=== PATIENT | female | born 1990 | race Hispanic/Latino ===

== ENCOUNTER 2017-06-14 08:16 | Outpatient (CLI) | payer OTHER ==
[2017-06-14 08:27] VITALS: BP 121/87
== END 2017-06-14 10:30 | disposition home or self-care (01) ==
LOC: TRG 08:16
PROVIDERS: ATTEND Obstetrics & Gynecology
DX: O47.1 False labor at or after 37 completed weeks of gestation (principal); Z3A.38 38 weeks gestation of pregnancy
CPT/HCPCS: 59025

== ENCOUNTER 2017-06-21 09:47 | Inpatient (IN) | payer OTHER ==
[2017-06-21] MEDS ORDERED: BRETHINE IVP PRN (11:19)
[2017-06-21] MEDS ORDERED: SUBLIMAZE IV PRN ×2 (11:19→11:28)
[2017-06-21] MEDS ORDERED: ePHEDrine SULFATE IV PRN (11:19)
[2017-06-21] MEDS ORDERED: MINERAL OIL PO PRN (11:19)
[2017-06-21] MEDS ORDERED: BRETHINE SUB-Q PRN (11:19)
[2017-06-21] MEDS ORDERED: XYLOCAINE 2% INFILTRATI ONE (11:19)
[2017-06-21] MEDS ORDERED: NARCAN 0.4 MG/1 ML IV PRN (11:19)
--- NOTE | 2017-06-21 11:30 | History and Physical Report ---
History of Present Illness Date of examination: 06/21/17 Date of admission: 06/21/17 09:48 Chief complaint: irregular contractions with blood in mucus History of present illness: 27 yo Fe, EDC 06/26/2017 (LMP), 39 weeks 2 days presents with irregular contractions and "bloody mucus." Pt initiated early care at 14 weeks. Hx GDM with previous ( 1hr GTT 166, 3hr WNL). Vitamin D deficiency (Vitamin D3 supplementation). course has been uneventful. O positive, Rubella Immune, GBS Neg. 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 denies: smoking, alcohol abuse, prescription drug abuse, IV drug use - Obstetrical History Expected Date of Delivery: 06/26/17 Actual Gestation: 39 Week(s) 2 Day(s) : 2 Para: 1 Hx # Term Pregnancies: 1 Number of Pregnancies: 0 Spontaneous Abortions: 0 Induced : 0 Number of Living Children: 1 Medications and Allergies Allergies Allergy/AdvReac Type Severity Reaction Status Date / Time No Known Allergies Allergy Unverified 06/14/17 08:19 Review of Systems All systems: negative Genitourinary: vaginal bleeding, vaginal discharge, contractions (Irergular), no leakage of fluid, no genital sores Neurological: headaches (mild) - Vital Signs Vital signs: Vital Signs Pulse Pulse Ox 87 0 L 06/21/17 10:02 06/21/17 10:02 Temp Pulse Resp BP Pulse Ox 97.9 F 85 15 141/87 96 06/21/17 10:10 06/21/17 11:24 06/21/17 10:10 06/21/17 11:24 06/21/17 10:37 - Physical Exam Breasts: Positive: normal Cardiovascular: Regular rate, Normal S1, Normal S2, No murmurs Lungs: Positive: Clear to auscultation, Normal air movement Abdomen: Positive: normal appearance (Gravid), normal bowel sounds Genitourinary (Female): Positive: normal external genitalia, normal perenium Vulva: both: normal Vagina: Positive: discharge (mucus with normal bloody show) Uterus: Positive: enlarged (Size=Dates) Anus/Rectum: Positive: normal perianal skin. Negative: hemorrhoids Extremities: Positive: normal Deep Tendon Reflex Grade: Normal +2 - Obstetrical FHR: category 1 FHR comments: Reassuring Uterine Contraction Monitor Mode: External Cervical Dilatation: 5 Cervical Effacement Percentage: 75 station: -2 Uterine Contraction Frequency (min): 10min Uterine Contraction Pattern: Irregular Uterine Tone Measurement Phase: Resting Uterine Contraction Intensity: Moderate Results Result Diagrams: 06/21/17 11:40 All other labs normal. Assessment and Plan A: Term IUP at 39w2d GBS Negative Advanced dilitation 5/75/-2 Bloody show Category 1 tracing P: Admit to L&D Anticipate Pitocin Augmentation
[2017-06-21] MEDS ORDERED: PITOCin/NS 20 UNIT/1000ML DRIP 20 UNITS/1,000 ML BAG IV SCH (12:00)
[2017-06-21] MEDS ORDERED: PITOCin/NS 30 UNIT/500ML 30 UNITS/500 ML BAG IV SCH (12:00)
[2017-06-21] MEDS ORDERED: LACTATED RINGERS 1,000 ML IV SCH (12:00)
[2017-06-21 12:33] LABS: Hematocrit 33.8 % (30.3-42.9); Hemoglobin 11.2 gm/dl (10.1-14.3); Mean Corpuscular HGB Conc 33 % (30-34); Mean Corpuscular Hemoglobin 28 pg (28-32); Mean Corpuscular Volume 84 fl (79-97); Platelet Count 202 K/mm3 (140-440); Red Blood Count 4.04 M/mm3 (3.65-5.03); Red Cell Distribution Width 15.4 % (13.2-15.2)
--- NOTE | 2017-06-21 13:44 | Anesthesia Consultation ---
Anesthesia Consult and Med Hx Date of service: 06/21/17 - Airway Anesthetic Teeth Evaluation: Good ROM Head & Neck: Adequate Mental/Hyoid Distance: Adequate Intubation Access Assessment: Probably Good - Pre-Operative Health Status ASA Pre-Surgery Classification: ASA2, Emergency Proposed Anesthetic Plan: Epidural, Spinal - Pulmonary Hx Asthma: No COPD: No Hx Pneumonia: No - Cardiovascular System Hx Hypertension: No - Central Nervous System Hx Seizures: No Hx Psychiatric Problems: No - Endocrine Hx Renal Disease: No Hx End Stage Renal Disease: No Hx Hypothyroidism: No Hx Hyperthyroidism: No - Hematic Hx Anemia: No Hx Sickle Cell Disease: No - Other Systems Hx Alcohol Use: No
[2017-06-21] MEDS ORDERED: fentaNYL-BUPIV 2 MCG/ML-0.125% 200 MCG/100 ML BAG EPIDURAL SCH (14:00)
[2017-06-21] MEDS ORDERED: PHENERGAN PR PRN (16:49)
[2017-06-21] MEDS ORDERED: TYLENOL PO PRN (16:49)
[2017-06-21] MEDS ORDERED: BENADRYL PO PRN (16:49)
[2017-06-21] MEDS ORDERED: TUCKS PAD TP PRN (16:49)
[2017-06-21] MEDS ORDERED: PHENERGAN PO PRN (16:49)
[2017-06-21] MEDS ORDERED: LANSINOH TP PRN (16:49)
[2017-06-21] MEDS ORDERED: MILK OF MAGNESIA PO PRN (16:49)
[2017-06-21] MEDS ORDERED: DULCOLAX PR PRN (16:49)
[2017-06-21] MEDS ORDERED: ZOFRAN IV PRN (16:49)
[2017-06-21] MEDS ORDERED: NORCO 5/325 PO PRN (16:49)
[2017-06-21] MEDS ORDERED: SODIUM CHLORIDE FLUSH SYRINGE 10 ML IV NR (17:00)
--- NOTE | 2017-06-21 17:00 | Procedure Note ---
OB Delivery Note - Delivery Date of Delivery: 06/21/17 (15:32) Surgeon: ELIO VALDEZ (DAVID) Estimated blood loss: <100cc - Vaginal Delivery presentation: vertex Delivery position: OA Intrapartum events: none Delivery induction: none Delivery augmentation: pitocin Delivery monitor: external FHT, external uterine Route of delivery: Delivery placenta: spontaneous (Ayala) Delivery cord: nuchal cord (loose x1) Episiotomy: none Anesthesia: epidural Delivery comments: viable female infant, GUCCI position, loose nuchal x1 delivered intact via somersault maneuver, over intact perineum at 15:32. placed on mothers abdomen, spontaneous cry noted. Delayed cord clamping, then cut by FOB. Spontaneous ayala delivery of intact placenta at 15:39 3VC. No tears or lacerations. EBL 100cc. FF@U-2. scant rubra lochia. no clots. Pt and left in stable condition in L&D. - Infant A at 1 minute: 8 at 5 minutes: 9 Infant Gender: Female (3568 grams, 7lbs 14oz, 20.5")
[2017-06-21] MEDS: MOTRIN PO SCH (19:16)
[2017-06-22] MEDS: MOTRIN PO SCH ×3 (05:49→18:16)
[2017-06-22 06:11] LABS: Hematocrit 35.6 % (30.3-42.9); Hemoglobin 11.7 gm/dl (10.1-14.3)
[2017-06-22] MEDS ORDERED: BOOSTRIX IM ONE (12:00)
[2017-06-22] MEDS ORDERED: Fluarix Quad 2017-2018(36 MOS+ IM ONE (12:00)
--- NOTE | 2017-06-22 15:32 | Progress Note ---
Assessment and Plan A: Day 1, Stable Breast and bottle feeding Plans tubal P: Routine care Plan discharge today and f/u 6 wk Subjective - Subjective Date of service: 06/22/17 Principal diagnosis: Day 1 Patient reports: appetite normal, voiding normally, pain well controlled, ambulating normally [place]: doing well, bottle feeding (and ) Objective - Vital Signs Latest vital signs: Vital Signs Temp Pulse Resp BP BP Pulse Ox 06/22/17 13:17 18 06/22/17 12:00 98.4 F 77 18 124/82 100 06/22/17 08:14 97.7 F 98 H 20 120/82 98 06/22/17 00:45 98.5 F 68 18 116/66 96 06/21/17 21:45 98.3 F 74 18 124/76 97 06/21/17 19:31 86 127/78 06/21/17 19:26 76 139/71 06/21/17 19:15 94 H 158/67 06/21/17 18:56 75 134/80 06/21/17 18:41 74 135/78 06/21/17 18:26 96 H 128/71 06/21/17 18:11 77 125/65 06/21/17 17:56 85 138/74 06/21/17 17:41 83 135/63 06/21/17 17:35 83 130/60 06/21/17 17:11 83 136/84 06/21/17 17:05 67 124/77 06/21/17 15:41 92 H 137/77 Intake and Output 06/21/17 06/22/17 06/22/17 23:59 07:59 15:59 Intake Total 240 240 Output Total 500 Balance -260 240 Intake: Oral 240 240 Output: Urine 500 Void 500 Other: Total, Intake Amount 240 120 Total, Output Amount 500 # Voids Void 1 - Exam Breasts: Present: deferred Cardiovascular: Present: Regular rate Lungs: Present: Clear to auscultation Abdomen: Present: normal appearance, soft Vulva: both: normal Uterus: Present: normal, firm, fundal height below umbilicus Extremities: Present: normal Deep Tendon Reflex Grade: Normal +2
--- NOTE | 2017-06-22 15:36 | Discharge Summary ---
Providers - Providers Date of Admission: 06/21/17 09:48 Date of discharge: 06/22/17 Attending physician: CECI CUMMINGS MD Primary care physician: CECI CUMMINGS MD Hospitalization Reason for admission: active labor, IUP at term Delivery: Episiotomy: none Laceration: none Other procedures: none complications: none Discharge diagnosis: IUP at term delivered [place] baby: female Condition at discharge: Good Disposition: DC-01 TO HOME OR SELFCARE Plan - Provider Discharge Summary Activity: routine, no sex for 6 weeks, no heavy lifting 4 weeks, no strenuous exercise Diet: routine Instructions: routine Additional instructions: [] Smoking cessation referral if applicable(refer to patient education folder for contact #) [] Refer to [facility]'s [facility] Booklet Call your doctor immediately for: * Fever > 100.5 * Heavy vaginal bleeding ( >1 pad per hour) * Severe persistent headache * Shortness of breath * Reddened, hot, painful area to leg or breast * Drainage or odor from incision. * Keep incision clean and dry at all times and follow doctor's instructions regarding bathing/showering - Follow up plan Follow up: ELIO VALDEZ CNM [Advanced Practice Nurse] - 6 Weeks Forms: [facility] Discharge Summary, Work/School Excuse Out Patient
[2017-06-23] MEDS: MOTRIN PO SCH ×2 (00:15→06:10)
[2017-06-23 09:59] VITALS: BP 132/84
== END 2017-06-23 10:45 | disposition home or self-care (01) | DRG 775 ==
LOC: TRG 09:47 → LD 09:48 → TRG 09:48 → OB 21:04
PROVIDERS: ADMIT Obstetrics & Gynecology; ATTEND Obstetrics & Gynecology
PROC: 10E0XZZ Delivery of Products of Conception, External Approach (ICD-10-PCS; principal; 2017-06-21)
PROC: 3E0R3BZ Introduction of Anesthetic Agent into Spinal Canal, Percutaneous Approach (ICD-10-PCS; 2017-06-21)
PROC: 00HU33Z Insertion of Infusion Device into Spinal Canal, Percutaneous Approach (ICD-10-PCS; 2017-06-21)
PROC: 3E0234Z Introduction of Serum, Toxoid and Vaccine into Muscle, Percutaneous Approach (ICD-10-PCS; 2017-06-22)
DX: O69.81X0 Labor and delivery complicated by cord around neck, without compression, not applicable or unspecified (principal); Z3A.39 39 weeks gestation of pregnancy; Z37.0 Single live birth; Z23 Encounter for immunization
CPT/HCPCS: 36415; 59025; 85014; 85018; 85027; 86850; 86900; 86901; 90471; 90686; 90715; G0008; J2590; J3010; J7120

== ENCOUNTER 2018-08-21 22:11 | Emergency (ER) | payer OTHER ==
[2018-08-21] MEDS ORDERED: ATIVAN IM PRN (22:47)
[2018-08-21] MEDS ORDERED: HALDOL IM PRN (22:47)
--- NOTE | 2018-08-21 22:48 | Emergency Department Report ---
ED General Adult HPI - General Chief complaint: Psych Stated complaint: SUICIDAL/MH EVAL Time Seen by Provider: 08/21/18 22:39 Source: patient, EMS (verbal report received from EMS.ems notes not available at time of chart dictation), RN notes reviewed, old records reviewed Mode of arrival: Stretcher Limitations: Other (the patient is a poor historian) - History of Present Illness Initial comments: This is a 28-year-old female. The patient is not known to this provider previously. The patient is brought to the hospital by emergency medical service s for presumed overdose. As per verbal report from emergency medical services, patient was found on a carpet. Apparently, her significant other contacted 911. Patient reportedly overdosed on [id number] medication, midol (took an unknown quantity at approximately 9:00 PM on the day of presentation), with a few beers. In the emergency room, the patient denies physical pain. EMS reports that they gave the patient 200 mL of normal saline in the field, and 2 mg of Narcan because she was apparently poorly responsive. In the emergency room, the patient is walking around with a steady gait. She will not specifically comment on why she took these medications. She is also found to have apparent linear wounds on the volar aspect of her proximal forearm, which appear to be self-inflicted. She is also found to have old scars. The patient denies headache, neck pain, chest pain, abdominal pain, shortness of breath. She makes no complaint of homicidality. She indicates no access to g uns or firearms. She does not believe that she is . Currently, no friends or family are available at this point time for collateral information. -: This afternoon Location: left, upper extremity Radiation: other Quality: other Consistency: other Improves with: other Worsens with: other - Related Data Home Medications Medication Instructions Recorded Confirmed Last Taken Vit-Fe Fumar-FA [ 1 tab PO QDAY 06/22/17 06/22/17 05/22/17 Vitamin] Allergies Allergy/AdvReac Type Severity Reaction Status Date / Time No Known Allergies Allergy Unverified 06/14/17 08:19 ED Review of Systems ROS: Stated complaint: SUICIDAL/MH EVAL Other details as noted in HPI Constitutional: malaise Eyes: denies: eye discharge ENT: denies: epistaxis Respiratory: denies: cough Cardiovascular: denies: chest pain Gastrointestinal: denies: abdominal pain Genitourinary: denies: dysuria Musculoskeletal: denies: back pain Skin: denies: lesions Psychiatric: as per HPI, depression. denies: homicidal thoughts ED Past Medical Hx - Past Medical History Hx Hypertension: No Hx Congestive Heart Failure: No Hx Diabetes: No Hx Deep Vein Thrombosis: No Hx Renal Disease: No Hx Sickle Cell Disease: No Hx Seizures: No Hx Asthma: No Hx COPD: No Hx HIV: No - Social History Smoking Status: Never Smoker - Medications Home Medications: Home Medications Medication Instructions Recorded Confirmed Last Taken Type Vit-Fe Fumar-FA [ 1 tab PO QDAY 06/22/17 06/22/17 05/22/17 History Vitamin] ED Physical Exam - General Limitations: No Limitations General appearance: alert, in no apparent distress - Head Head exam: Present: atraumatic, normocephalic - Eye Eye exam: Present: normal appearance, EOMI. Absent: nystagmus - ENT ENT exam: Present: normal exam, normal orophraynx, mucous membranes moist, normal external ear exam - Neck Neck exam: Present: normal inspection, full ROM. Absent: tenderness, meningis mus - Respiratory Respiratory exam: Present: normal lung sounds bilaterally. Absent: respiratory distress - Cardiovascular Cardiovascular Exam: Present: regular rate, normal rhythm, normal heart sounds. Absent: bradycardia, tachycardia, irregular rhythm, systolic murmur, diastolic murmur, rubs, gallop - GI/Abdominal GI/Abdominal exam: Present: soft, normal bowel sounds. Absent: distended, tenderness, guarding, rebound, rigid - Extremities Exam Extremities exam: Present: full ROM, other (2+ pulses noted in the bilateral upper, lower extremities. Compartments soft. No long bony tenderness. The pelvis is stable.). Absent: normal inspection (on the dorsal aspect of the left proximal forearm, new linear abrasions are noted, suggestive of self-inflicted wounds. There are old-appearing wounds as well. No obvious lacerations noted. No obvious tendon deficits in the left upper extremity.), pedal edema, joint swelling, calf tenderness - Back Exam Back exam: Present: normal inspection, full ROM. Absent: tenderness, CVA tenderness (R), paraspinal tenderness, vertebral tenderness - Neurological Exam Neurological exam: Present: alert, normal gait, other (Extraocular movements intact. Tongue midline. No facial droop. Facial sensation intact to light touch in the V1, V2, V3 distribution bilaterally. 5 and 5 strength in 4 extremities.. Sensation is intact to light touch in 4 extremities.). Absent: motor sensory deficit - Psychiatric Psychiatric exam: Present: flat affect - Skin Skin exam: Present: warm, dry, intact, normal color. Absent: rash ED Course Vital Signs 08/21/18 08/21/18 08/21/18 22:38 22:44 22:47 Temperature 97.3 F L 97.3 F L Pulse Rate 72 Respiratory 12 14 Rate Blood Pressure 110/65 O2 Sat by Pulse 99 98 100 Oximetry 08/21/18 08/21/18 22:53 23:00 Temperature Pulse Rate 72 79 Respiratory 17 10 L Rate Blood Pressure 91/55 O2 Sat by Pulse 100 99 Oximetry - Reevaluation(s) Reevaluation #1: 08/22/18 00:25 Differential diagnosis, including not limited to: Superficial self-inflicted wound. Overdose. Suicidality. Mood disorder. Assessment and plan: 28-year-old female with reported overdose, and evidence of what appeared to be self-inflicted wounds. The patient is afebrile with reassuring vital signs. She is placed on a 1013. Screening laboratory studies have demonstrated elevated acetaminophen level, normal noncontrast CT scan of the brain, otherwise basically unremarkable laboratory studies. We will replete the patient's potassium. She reports her time of ingestion is not o'clock p.m. No family members at this time are available to corroborate this information. She walks with a steady gait, and has no midline cervical spine pain or tenderness. Contacted Poison Control Center discussed with Cece, who recommends for our laboratory studies, including coagulation parameters, repeat acetaminophen level, and repeat liver function tests. We will also repeat the patient's EKG. We will contact the [place] [facility] for further recommendations. At this point in time, patient does not meet criteria for initiation of an acetylcysteine therapy. Reevaluation #2: 08/22/18 01:22 Acetaminophen level is noted to be downtrending. Went back to reevaluate the patient. Patient now states that she believed that she took the acetaminophen at approximately 8:00 PM on the day of ingestion. Patient has downtrending levels, and also has a level taken after the 4 hour timothy, as per her history. I specifically informed the patient that I would need to know the earliest possible time of ingestion, and she was counseled about the risk of possible liver toxicity, liver failure, and , if correct information were not provided. The patient verbalized understanding in her own words. The patient does not appear to be intoxicated at this time. She does not appear to be psychotic at this time. [facility] [place] [facility] Given that patient has a downtrending acetaminophen level, given that we have a level that is taken 4 hours after reported time of ingestion, the patient at this point time does not qualify for an NAC therapy. We will treat the patient supportively. The patient at this point time does not appear to have an immediate medical contraindication to psychiatric admission, evaluation, consultation. The crisis team is informed. ED Medical Decision Making - Lab Data Result diagrams: 08/21/18 22:52 08/21/18 22:52 Vital Signs 08/21/18 08/21/18 08/21/18 22:38 22:44 22:47 Temperature 97.3 F L 97.3 F L Pulse Rate 72 Respiratory 12 14 Rate Blood Pressure 110/65 O2 Sat by Pulse 99 98 100 Oximetry 08/21/18 08/21/18 22:53 23:00 Temperature Pulse Rate 72 79 Respiratory 17 10 L Rate Blood Pressure 91/55 O2 Sat by Pulse 100 99 Oximetry Lab Results 08/21/18 08/21/18 08/21/18 Range/Units 22:50 22:50 22:52 WBC 9.2 (4.5-11.0) K/mm3 RBC 4.37 (3.65-5.03) M/mm3 Hgb 13.8 (10.1-14.3) gm/dl Hct 39.7 (30.3-42.9) % MCV 91 (79-97) fl MCH 32 (28-32) pg MCHC 35 H (30-34) % RDW 13.4 (13.2-15.2) % Plt Count 284 (140-440) K/mm3 Sodium (137-145) mmol/L Potassium (3.6-5.0) mmol/L Chloride (98-107) mmol/L Carbon Dioxide (22-30) mmol/L Anion Gap mmol/L BUN (7-17) mg/dL Creatinine (0.7-1.2) mg/dL Estimated GFR ml/min BUN/Creatinine Ratio % Glucose (65-100) mg/dL Calcium (8.4-10.2) mg/dL Magnesium (1.7-2.3) mg/dL Total Bilirubin (0.1-1.2) mg/dL AST (5-40) units/L ALT (7-56) units/L Alkaline Phosphatase (35-129) units/L Total Creatine Kinase (30-135) units/L Total Protein (6.3-8.2) g/dL Albumin (3.9-5) g/dL Albumin/Globulin Ratio % HCG, Quant (0-4) mIU/mL Urine Color Yellow (Yellow) Urine Turbidity Clear (Clear) Urine pH 6.0 (5.0-7.0) Ur Specific [place] 1.012 (1.003-1.030) Urine Protein <15 mg/dl (Negative) mg/dL Urine Glucose (UA) Neg (Negative) mg/dL Urine Ketones Tr (Negative) mg/dL Urine Blood Neg (Negative) Urine Nitrite Neg (Negative) Urine Bilirubin Neg (Negative) Urine Urobilinogen < 2.0 (<2.0) mg/dL Ur Leukocyte Esterase Sm (Negative) Urine WBC (Auto) 1.0 (0.0-6.0) /HPF Urine RBC (Auto) 1.0 (0.0-6.0) /HPF U Epithel Cells (Auto) 1.0 (0-13.0) /HPF Urine Bacteria (Auto) 1+ (Negative) /HPF Urine Mucus Few /HPF Salicylates (2.8-20.0) mg/dL Urine Opiates Screen Presumptive negative Urine Methadone Screen Presumptive negative Acetaminophen (10.0-30.0) ug/mL Ur Barbiturates Screen Presumptive negative Ur Phencyclidine Scrn Presumptive negative Ur Amphetamines Screen Presumptive negative U Benzodiazepines Scrn Presumptive negative Urine Cocaine Screen Presumptive negative U Marijuana (THC) Screen Presumptive negative Drugs of Abuse Note Disclamer Plasma/Serum Alcohol (0-0.07) % 08/21/18 08/21/18 08/21/18 Range/Units 22:52 22:52 22:52 WBC (4.5-11.0) K/mm3 RBC (3.65-5.03) M/mm3 Hgb (10.1-14.3) gm/dl Hct (30.3-42.9) % MCV (79-97) fl MCH (28-32) pg MCHC (30-34) % RDW (13.2-15.2) % Plt Count (140-440) K/mm3 Sodium 137 (137-145) mmol/L Potassium 3.1 L (3.6-5.0) mmol/L Chloride 99.5 (98-107) mmol/L Carbon Dioxide 21 L (22-30) mmol/L Anion Gap 20 mmol/L BUN 6 L (7-17) mg/dL Creatinine 0.6 L (0.7-1.2) mg/dL Estimated GFR > 60 ml/min BUN/Creatinine Ratio 10 % Glucose 97 (65-100) mg/dL Calcium 8.8 (8.4-10.2) mg/dL Magnesium 1.90 (1.7-2.3) mg/dL Total Bilirubin 0.20 (0.1-1.2) mg/dL AST 21 (5-40) units/L ALT 60 H (7-56) units/L Alkaline Phosphatase 83 (35-129) units/L Total Creatine Kinase 60 (30-135) units/L Total Protein 7.4 (6.3-8.2) g/dL Albumin 4.2 (3.9-5) g/dL Albumin/Globulin Ratio 1.3 % HCG, Quant < 2 (0-4) mIU/mL Urine Color (Yellow) Urine Turbidity (Clear) Urine pH (5.0-7.0) Ur Specific [place] (1.003-1.030) Urine Protein (Negative) mg/dL Urine Glucose (UA) (Negative) mg/dL Urine Ketones (Negative) mg/dL Urine Blood (Negative) Urine Nitrite (Negative) Urine Bilirubin (Negative) Urine Urobilinogen (<2.0) mg/dL Ur Leukocyte Esterase (Negative) Urine WBC (Auto) (0.0-6.0) /HPF Urine RBC (Auto) (0.0-6.0) /HPF U Epithel Cells (Auto) (0-13.0) /HPF Urine Bacteria (Auto) (Negative) /HPF Urine Mucus /HPF Salicylates < 0.3 L (2.8-20.0) mg/dL Urine Opiates Screen Urine Methadone Screen Acetaminophen (10.0-30.0) ug/mL Ur Barbiturates Screen Ur Phencyclidine Scrn Ur Amphetamines Screen U Benzodiazepines Scrn Urine Cocaine Screen U Marijuana (THC) Screen Drugs of Abuse Note Plasma/Serum Alcohol (0-0.07) % 08/21/18 08/21/18 Range/Units 22:52 22:52 WBC (4.5-11.0) K/mm3 RBC (3.65-5.03) M/mm3 Hgb (10.1-14.3) gm/dl Hct (30.3-42.9) % MCV (79-97) fl MCH (28-32) pg MCHC (30-34) % RDW (13.2-15.2) % Plt Count (140-440) K/mm3 Sodium (137-145) mmol/L Potassium (3.6-5.0) mmol/L Chloride (98-107) mmol/L Carbon Dioxide (22-30) mmol/L Anion Gap mmol/L BUN (7-17) mg/dL Creatinine (0.7-1.2) mg/dL Estimated GFR ml/min BUN/Creatinine Ratio % Glucose (65-100) mg/dL Calcium (8.4-10.2) mg/dL Magnesium (1.7-2.3) mg/dL Total Bilirubin (0.1-1.2) mg/dL AST (5-40) units/L ALT (7-56) units/L Alkaline Phosphatase (35-129) units/L Total Creatine Kinase (30-135) units/L Total Protein (6.3-8.2) g/dL Albumin (3.9-5) g/dL Albumin/Globulin Ratio % HCG, Quant (0-4) mIU/mL Urine Color (Yellow) Urine Turbidity (Clear) Urine pH (5.0-7.0) Ur Specific [place] (1.003-1.030) Urine Protein (Negative) mg/dL Urine Glucose (UA) (Negative) mg/dL Urine Ketones (Negative) mg/dL Urine Blood (Negative) Urine Nitrite (Negative) Urine Bilirubin (Negative) Urine Urobilinogen (<2.0) mg/dL Ur Leukocyte Esterase (Negative) Urine WBC (Auto) (0.0-6.0) /HPF Urine RBC (Auto) (0.0-6.0) /HPF U Epithel Cells (Auto) (0-13.0) /HPF Urine Bacteria (Auto) (Negative) /HPF Urine Mucus /HPF Salicylates (2.8-20.0) mg/dL Urine Opiates Screen Urine Methadone Screen Acetaminophen 103.4 H (10.0-30.0) ug/mL Ur Barbiturates Screen Ur Phencyclidine Scrn Ur Amphetamines Screen U Benzodiazepines Scrn Urine Cocaine Screen U Marijuana (THC) Screen Drugs of Abuse Note Plasma/Serum Alcohol 0.02 (0-0.07) % - EKG Data 08/22/18 00:24 EKG #1 shows normal sinus, minute, normal axis, normal intervals, QTC prolonged, motion artifact, this is an abnormal EKG. This is not consistent with ST e levation myocardial infarction. - Radiology Data Radiology results: report reviewed, image reviewed Noncontrast CT scan of the brain is negative for acute disease. Critical care attestation.: If time is entered above; I have spent that time in minutes in the direct care of this critically ill patient, excluding procedure time. ED Disposition Clinical Impression: Medical clearance for psychiatric admission Disposition: DC/TX-65 PSY HOSP/PSY UNIT Is pt being admited?: No Does the pt Need Aspirin: No Condition: Good
[2018-08-21 23:12] LABS: Hematocrit 39.7 % (30.3-42.9); Hemoglobin 13.8 gm/dl (10.1-14.3); Mean Corpuscular HGB Conc 35 % (30-34); Mean Corpuscular Volume 91 fl (79-97); Platelet Count 284 K/mm3 (140-440); Red Blood Count 4.37 M/mm3 (3.65-5.03); Red Cell Distribution Width 13.4 % (13.2-15.2)
[2018-08-21 23:14] LABS: Bacteria,Urine 1+ /HPF (Negative); Bilirubin,Urine NEG (Negative); Blood,Urine NEG (Negative); Color,Urine Yellow (Yellow); Mucus,Urine FEW /HPF; Protein,Urine <15 mg/dL mg/dL (Negative); Urobilinogen,Urine < 2.0 mg/dL (<2.0)
[2018-08-21 23:19] LABS: Amphetamine Screen,Urine PRESUMPTIVE NEGATIVE; Benzodiazepines Screen,Urine PRESUMPTIVE NEGATIVE; Cannabinoid Screen,Urine PRESUMPTIVE NEGATIVE; Cocaine Screen,Urine PRESUMPTIVE NEGATIVE; Methadone Screen,Urine PRESUMPTIVE NEGATIVE; Opiate Screen,Urine PRESUMPTIVE NEGATIVE
[2018-08-21 23:29] LABS: Alanine Aminotransferase 60 units/L (7-56); Albumin 4.2 g/dL (3.9-5); BUN/Creatinine Ratio 10; Blood Urea Nitrogen 6 mg/dL (7-17); Calcium 8.8 mg/dL (8.4-10.2); Hemolysis Index 3
--- NOTE | 2018-08-21 23:35 | Cat Scan Report ---
PROCEDURE: CT HEAD/BRAIN WO CON TECHNIQUE: Computerized tomography of the head was performed without contrast material. CT DOSE LENGTH PRODUCT: 805.4 mGycm HISTORY: overdose, found on floor , hx of ams COMPARISONS: None . FINDINGS: Skull and scalp: Normal . Paranasal sinuses: Normal . Ventricles and subarachnoid spaces: Normal . Cerebrum: No evidence of hemorrhage, acute infarction or mass . Cerebellum and brainstem: No evidence of hemorrhage, acute infarction or mass . Vasculature: Normal . Other: None . ASPECTS: 10 IMPRESSION: Normal Examination . This document is electronically signed by Queta Cruz DO., August 21 2018 11:33:09 PM ET
[2018-08-21] MEDS ORDERED: K-DUR PO ONE (23:49)
[2018-08-21] MEDS ORDERED: NACL 0.9% 1000 ML 1,000 ML IV ONE (23:52)
[2018-08-22] MEDS ORDERED: ZOFRAN IV ONE ×2 (00:52→12:01)
[2018-08-22 00:54] LABS: INR 1.27 (0.87-1.13)
[2018-08-22 01:09] LABS: Alanine Aminotransferase 59 units/L (7-56)
[2018-08-22 01:19] LABS: Bilirubin,Direct < 0.2 mg/dL (0-0.2)
[2018-08-22] MEDS ORDERED: ZOFRAN ODT PO PRN (01:24)
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
[2018-08-22] MEDS ORDERED: ZOFRAN ONE (11:58)
[2018-08-22] MEDS: VISTARIL PO SCH ×3 (12:35→20:33)
[2018-08-22 12:45] LABS: INR 1.29 (0.87-1.13)
[2018-08-22 12:46] LABS: Partial Thromboplastin Time 32.6 Sec. (24.2-36.6)
[2018-08-22 13:06] LABS: Alanine Aminotransferase 52 units/L (7-56); Albumin 3.9 g/dL (3.9-5); BUN/Creatinine Ratio 7; Blood Urea Nitrogen 4 mg/dL (7-17); Calcium 8.7 mg/dL (8.4-10.2); Hemolysis Index 2
[2018-08-22] MEDS ORDERED: REMERON PO SCH (22:00)
[2018-08-23 06:45] LABS: Hemoglobin 15.3 gm/dl (10.1-14.3); Mean Corpuscular HGB Conc 34 % (30-34); Mean Corpuscular Volume 92 fl (79-97); Platelet Count 301 K/mm3 (140-440); Red Blood Count 4.88 M/mm3 (3.65-5.03); Red Cell Distribution Width 13.7 % (13.2-15.2)
[2018-08-23 06:56] LABS: INR 1.12 (0.87-1.13); Partial Thromboplastin Time 29.3 Sec. (24.2-36.6)
[2018-08-23 07:06] LABS: Alanine Aminotransferase 42 units/L (7-56); Albumin 3.8 g/dL (3.9-5); BUN/Creatinine Ratio 11; Blood Urea Nitrogen 10 mg/dL (7-17); Calcium 8.9 mg/dL (8.4-10.2); Hemolysis Index 12
[2018-08-23 07:20] LABS: Bilirubin,Direct < 0.2 mg/dL (0-0.2)
[2018-08-23] MEDS: VISTARIL PO SCH ×3 (08:50→16:16)
[2018-08-23 08:52] VITALS: BP 109/72
--- NOTE | 2018-08-23 11:54 | Progress Note ---
Subjective - Reason for Consult Consult date: 08/23/18 Reason for consult: Psychiatry Follow-up - Chief Complaint Chief complaint: "I should be able to leave" 28 y.o. female who presented to the ER for depression and suicide attempt. Today the patient is calm during the assessment. She is adamant that she is safe to be discharged. Throughout the interview, she speak about how her job maybe in jeopardy and missing her children. She didn't say anything about her mental health and how to cope with stressors. She did state that her actions prior to coming to the ER stem from not coping well with stress. She denies SI/HI's and AVH's. She denies any side effects of medications. Mental Status Exam - Vital signs Last Vital Signs Temp 98.3 F 08/23/18 08:51 Pulse 74 08/23/18 08:51 Resp 18 08/23/18 08:51 BP 109/72 08/23/18 08:51 Pulse Ox 99 08/23/18 08:51 - Exam Narrative exam: MSE: Appearance: calm, cooperative Behavior: regular eye contact Speech: regular rate and tone Mood: '"depressed" Affect: congruent to mood Thought Process: circumstantial Thought Content: denies SI/HI's and AVH's Motor Activity: ambulatory Cognition: A/O x3 Insight: variable to fair Judgment: variable Assessment and Plan Impression: MDD, Severe Type. PTSD. Today the patient is calm during the assessment.Tylenol Level 91.5. QTc 468.. The patient is minimizing her actions. DDx: R/O Bipolar DO, Unspecified Anxiety DO Recommendation/Plan: Continue 1013 and Vistaril 25 mg PO TID for anxiety and Remeron 15 mg Po HS for depression/anxiety/PTSD. Discussed possible suicidality/medication induced jose with the patient reference Remeron with the patient, she verbalized understanding. Dispo: The patient was referred to inpatient psy services. Will staff with Dr Abby Carbajal.
== END 2018-08-23 15:30 ==
LOC: ED 22:11 → EEVIPCON 22:11 → ED 08-23 15:30
DX: T39.1X2A Poisoning by 4-Aminophenol derivatives, intentional self-harm, initial encounter (principal); F32.3 Major depressive disorder, single episode, severe with psychotic features; R11.10 Vomiting, unspecified; F43.10 Post-traumatic stress disorder, unspecified; F41.9 Anxiety disorder, unspecified; Y92.89 Other specified places as the place of occurrence of the external cause
CPT/HCPCS: 36415; 70450; 80053; 80076; 80307; 81001; 82550; 83735; 84702; 85027; 85610; 85730; 93005; 93010; 96361; 96374; 96376; 99285; G0480; J2405; J7030; 80320; Q0162; Q0177